=== PATIENT | male | born 1980 | race Caucasian/White ===

== ENCOUNTER 2019-06-12 13:09 | Emergency (ER) | payer OTHER, SELFPAY ==
--- NOTE | ~2019-06-12 | XR_ITS ---
EXAMINATION: XR chest 2V EXAM DATE: 06/12/2019 14:42 INDICATION: Cough. TECHNIQUE: Frontal and lateral projections of the chest obtained and reviewed. There is no prior ephraim dy for comparison. FINDINGS: The lungs are clear. There are no pleural effusions. The cardiomediastinal silhouette is within normal limits. There is no pneumothorax suspected. The bones and soft tissues are unremarkab le. IMPRESSION: Normal chest x-ray exam. Reviewed, dictated and finalized at location A. IMPRESSION: Normal chest x-ray exam.
[2019-06-12 13:18] VITALS: BP 139/86; PULSE 125; RESP 24; TEMP 39.3; O2SAT 95
[2019-06-12] MEDS: IBUPROFEN 600 MG TABLET PO (13:38)
--- NOTE | 2019-06-12 14:04 | ED.URI ---
HPI - URI/Sore Throat General Chief Complaint: Upper Respiratory Infection Stated Complaint: sore throat Source: patient Mode of arrival: ambulatory Limitations: no limitations History of Present Illness HPI Narrative: Patient is a 38-year-old male who presents complaining of fever, body aches, sore throat x2 days. He denies cough, or congestion. Patient reports taking NyQuil with moderate relief. MD elicited complaint: fever and sore throat Related Data Home Medications Medication Instructions Recorded Confirmed amlodipine 06/12/19 escitalopram oxalate mg 06/12/19 irbesartan mg 06/12/19 Allergies Allergy/AdvReac Type Severity Reaction Status Date / Time Penicillins Allergy Unknown Unknown Verified 06/12/19 13:25 Review of Systems Review of Systems: Narrative: CONSTITUTIONAL: Denies fever, chills, or sweats. EYES: Denies visual changes, redness, or discharge. ENT: Denies rhinorrhea, congestion, reports sore throat CARDIOVASCULAR: Denies chest pain, palpitations, or edema. RESPIRATORY: Denies cough or dyspnea. GASTROINTESTINAL: Denies abdominal pain, nausea, vomiting, or diarrhea. GENITOURINARY: Denies dysuria or hematuria. SKIN: Denies rash or itching. MUSCULOSKELETAL: Denies back pain, joint pain, or myalgia. NEUROLOGIC: Denies headache, numbness, dizziness, or weakness. PSYCHIATRIC: Denies anxiety or depression. [facility] Past Medical History Medical History (Updated 06/12/19 @ 14:16 by DEREK Juarez) HTN (hypertension) Social History Social History (Updated 06/12/19 @ 14:10 by DEREK Juarez) Smoking status: Never smoker Alcohol intake: current Alcohol use details: Socially Substance use: never Living arrangements: with family Exam Narrative: Exam Narrative: GENERAL: Well-appearing, well-nourished, and in no acute distress. HEAD: Normocephalic, atraumatic. EYES: EOMI. No redness or drainage. Conjunctiva are normal. ENT: Mucous membranes pink and moist. Nares clear. No rhinorrhea. TMs normal bilaterally. Throat positive for erythema, edema and exudate uvula midline. NECK: AROM. Supple. Bilateral cervical lymphadenopathy. CHEST: No respiratory distress. Clear to auscultation. HEART: Regular rate and rhythm. No murmur appreciated. Normal peripheral pulses. EXTREMITIES: Normal range of motion. No edema. SKIN: Warm, dry, no rash. NEURO: No focal deficits. Alert and oriented x3. Gait steady. PSYCH: Normal affect. No signs of depression or anxiety. Course Vital Signs Vital signs: Vital Signs Temperature 39.3 C H 06/12/19 13:18 Pulse Rate 125 H 06/12/19 13:18 Respiratory Rate 24 H 06/12/19 13:18 Blood Pressure 139/86 06/12/19 13:18 Pulse Oximetry 95 06/12/19 13:18 Temperature 39.3 C H 06/12/19 13:18 Pulse Rate 125 H 06/12/19 13:18 Respiratory Rate 24 H 06/12/19 13:18 Blood Pressure 139/86 06/12/19 13:18 Pulse Oximetry 95 06/12/19 13:18 MDM - URI/Sore Throat MDM Narrative Medical decision making narrative: Patient is positive strep throat, negative influenza. Discussed with patient plan of care and starting antibiotics at this time. Patient aware of and agrees with plan of care. Patient is stable for discharge home with outpatient follow-up as discussed. Differential Diagnosis Differential diagnosis: Likely upper respiratory infection and pharyngitis Lab Data Labs: Influenza A Screen Negative Reference Range: Negative Influenza B Screen Negative Reference Range: Negative Strep Screen Positive Group A Strep *(Reference Range: Negative)* Reviewed Discharge Plan Discharge Clinical Impression: Strep throat Patient Disposition: Home, Self-Care Condition: Stable Instructions: Antibiotic Form Additional Instructions: Take antibiotics as directed. Follow-up with your PCP in 3 to 5 days if symptoms persist Prescriptions: New azithromycin 250 mg
[2019-06-12 14:26] VITALS: PULSE 122; RESP 18; TEMP 39.9; O2SAT 92
--- NOTE | 2019-06-12 14:27 | PC.NURSE ---
Temp 103.8 Pulse 122 Pulse ox: 92% Patient given bottled water to drink and Tylenol for fever. Monitored in Room #3
[2019-06-12] MEDS: ACETAMINOPHEN 500 MG TABLET 1000 MG PO (14:35)
[2019-06-12 14:55] VITALS: PULSE 106; TEMP 39.2; O2SAT 95
[2019-06-12 15:05] VITALS: PULSE 106; RESP 18; TEMP 39.2; O2SAT 95
== END 2019-06-12 15:00 | disposition home or self-care (01) ==
PROVIDERS: Emergency Provider Nurse Practitioner
DX: J02.0 Streptococcal pharyngitis (principal); I10 Essential (primary) hypertension
CPT/HCPCS: 71046; 87804; 87880; 99213; A9270; G0463

== ENCOUNTER 2022-08-01 14:12 | Emergency (ER) | payer OTHER, SELFPAY ==
[2022-08-01 14:29] VITALS: BP 135/78; PULSE 100; RESP 18; TEMP 37; O2SAT 94
--- NOTE | 2022-08-01 15:10 | ED.GENADULT ---
HPI - General Adult General Chief complaint: Upper Respiratory Infection Stated complaint: . Time Seen by Provider: 08/01/22 15:10 Source: patient Mode of arrival: ambulatory Limitations: no limitations History of Present Illness HPI narrative: 41-year-old male patient presents to [facility] with complaints of cough and congestion for the last 3 days. Patient states he 1st started having symptoms on July 20 travel to [place]. Patient states he had body aches, chills, fatigue, cough, sinus drainage. Patient states that has been getting better and then started having a cough that worsened the last 2 days. Denies fevers, body aches or chills. Denies abdominal pain, nausea, vomiting or diarrhea. Denies chest pain or shortness of breath. Related Data Home Medications Medication Instructions Recorded Confirmed amlodipine 10 mg tablet 10 mg PO DAILY 06/12/19 08/01/22 irbesartan 300 mg tablet 300 mg PO DAILY 06/12/19 08/01/22 metformin 500 mg tablet,extended 1,000 mg PO DAILY 08/01/22 08/01/22 release 24 hr Allergies Allergy/AdvReac Type Severity Reaction Status Date / Time Penicillins Allergy Unknown Unknown Verified 08/01/22 14:32 Review of Systems Review of Systems: CONSTITUTIONAL: Denies fever, chills, or sweats. EYES: Denies visual changes, redness, or discharge. ENT: Positive rhinorrhea, congestion, denies sore throat, or otalgia. CARDIOVASCULAR: Denies chest pain, palpitations, or edema. RESPIRATORY: positive cough denies dyspnea. GASTROINTESTINAL: Denies abdominal pain, nausea, vomiting, or diarrhea. GENITOURINARY: Denies dysuria or hematuria. SKIN: Denies rash or itching. MUSCULOSKELETAL: Denies back pain, joint pain, or myalgia. NEUROLOGIC: Denies headache, numbness, or weakness. PSYCHIATRIC: Denies anxiety or depression. [facility] Past Medical History Medical History HTN (hypertension) Social History Social History Smoking status: Never smoker Alcohol intake: current Alcohol use details: Socially Substance use: never Living arrangements: with family Comments At the time of my signature I agree with nursing past medical history, surgical, social, and family history. There is no relevant family history pertinent to the presenting complaint. Exam Narrative: GENERAL: Well-appearing, well-nourished, and in no acute distress. HEAD: Normocephalic, atraumatic. EYES: PERRLA and EOMI. ENT: Nares with erythema noted bilaterally, patent, no rhinorrhea or epistaxis. Mucous membranes moist. posterior pharynx with some postnasal drip. No erythema, tonsillar enlargement, exudates or lesions present. Bilateral TMs are clear no erythema or foreign bodies the canal. NECK: Supple. No lymphadenopathy CHEST: Clear to auscultation. No respiratory distress. HEART: Regular rate and rhythm. No murmur heard. Normal peripheral pulses. ABDOMEN: Soft, nontender, nondistended, normal active bowel sounds. EXTREMITIES: Normal range of motion. No edema. SKIN: Warm, dry, no rash. NEURO: No focal deficits. Alert and oriented x3. Course Course Level of Care: Express Care Visit Vital Signs Vital signs: Vital Signs Temperature 37.0 C 08/01/22 14:29 Pulse Rate 100 08/01/22 14:29 Respiratory Rate 18 08/01/22 14:29 Blood Pressure 135/78 08/01/22 14:29 Pulse Oximetry 94 08/01/22 14:29 Oxygen Delivery Room Air 08/01/22 14:29 Temperature 37.0 C 08/01/22 14:29 Pulse Rate 100 08/01/22 14:29 Respiratory Rate 18 08/01/22 14:29 Blood Pressure 135/78 08/01/22 14:29 Pulse Oximetry 94 08/01/22 14:29 Oxygen Delivery Room Air 08/01/22 14:29 vital signs reviewed. The patient has been informed that they may have pre-hypertension or Hypertension based on a BP reading in the department. I recommend that the patient call the primary care provider listed on their
== END 2022-08-01 15:20 | disposition home or self-care (01) ==
PROVIDERS: Emergency Provider Nurse Practitioner Family; PCP Internal Medicine
DX: J20.8 Acute bronchitis due to other specified organisms (principal); I10 Essential (primary) hypertension
CPT/HCPCS: 99213; G0463